=== PATIENT | female | born 1980 | race Caucasian/White ===

== ENCOUNTER 2018-09-18 09:41 | Outpatient (REF) | payer OTHER, SELFPAY ==
--- NOTE | 2018-09-18 09:10 | PAPFT_PTH ---
PATIENT: Savanna Hurd LOC: [facility] U#:[id number] AGE/SX: 38/F ROOM: RE09/18/[address]: BERNICE Alvarenga : 1980 BED: DIS: 09/18/2018 SPEC #: [id number] RECD: 09/18/18 12:50 STATUS: NII REQ #: [id number] EDGARDO: 09/18/18 09:[address]: Tonia Simon DEPT: [facility] Cytology RECD BY: Mary Nieves Tissues: 1 - CX/ENDOCX FOR PAP SMEARS Procedures: PAP THIN PREP/[facility] Screening HPV DNA PROBE Comments: [id number]
== END 2018-09-18 10:01 ==
LOC: LBN 09:41
PROVIDERS: Visit Provider Nurse Practitioner Family
DX: Z12.4 Encounter for screening for malignant neoplasm of cervix (principal); Z11.51 Encounter for screening for human papillomavirus (HPV)
CPT/HCPCS: 88142; 87624

== ENCOUNTER 2019-12-28 10:20 | Outpatient (REF) | payer BC, SELFPAY ==
[2019-12-28 13:15] LABS: Abs Immature Grans 0.02 10^3/uL (0.0-0.06); Absolute Basophil Count 0.03 10^3/uL (0.0-0.2); Absolute Eosinophil Count 0.01 10^3/uL (0.0-0.7); Absolute Lymphocyte Count 1.44 10^3/uL (1.2-3.4); Absolute Monocyte Count 0.35 10^3/uL (0.1-0.8); Absolute Neutrophil Count 3.43 10^3/uL (1.2-6.7); Basophils % 0.6; Eosinophils % 0.2; HCT 36.4 % (36.0-46.0); HGB 11.8 g/dL (11.2-15.7); Immature Grans % 0.4; Lymphocytes % 27.3; MCH 30.3 pg (27.0-33.0); MCHC 32.4 % (32.0-36.0); MCV 93.3 fL (80-95); MPV 10.6 fL (8.0-11.0); Monocytes % 6.6; Neutrophils % 64.9; Nucleated RBC 0 %; Platelet Count 227 10^3/uL (130-400); RDW 11.9 % (11.7-14.6); WBC 5.28 10^3/uL (4.4-10.8)
[2019-12-28 13:46] LABS: TSH 1.71 uIU/mL (0.36-3.74)
[2019-12-28 14:27] LABS: ESR 10 mm/hr (0-20)
== END 2019-12-28 10:40 ==
LOC: LBN 10:20
PROVIDERS: PCP Emergency Medicine; Visit Provider Emergency Medicine
DX: E03.9 Hypothyroidism, unspecified (principal); R19.7 Diarrhea, unspecified
CPT/HCPCS: 85652; 84443; 85025

== ENCOUNTER 2020-03-17 00:53 | Outpatient (CLI) | payer BC, SELFPAY ==
[2020-03-17 13:28] LABS: Potassium 3.8 mmol/L (3.5-5.1)
[2020-03-20 14:18] LABS: IgA 183 mg/dL (85-499); Interpretation (See Note); Tissue Transglutaminase IgA <1.2 U/mL (<4.0)
== END 2020-03-17 01:13 ==
PROVIDERS: PCP Emergency Medicine; Visit Provider Surgery
DX: R19.7 Diarrhea, unspecified (principal)
CPT/HCPCS: 36415; 82784; 83516; 83735; 84132

== ENCOUNTER 2020-03-18 09:49 | Outpatient (REF) | payer BC, SELFPAY ==
[2020-03-21 19:32] LABS: Calprotectin <15.6 mcg/g
== END 2020-03-18 10:09 ==
LOC: LBN 09:49
PROVIDERS: PCP Emergency Medicine; Visit Provider Surgery
DX: R19.7 Diarrhea, unspecified (principal)
CPT/HCPCS: 87329; 83993

== ENCOUNTER 2020-04-10 10:23 | Day surgery (SDC) | payer BC, SELFPAY ==
--- NOTE | 2020-04-10 06:56 | COLE_ITS ---
Date of service: 04/10/20 Time of Service: 12:09 Colonoscopy Report Date of procedure: 04/10/20 Pre-op diagnosis general: Diarrhea Post-op diagnosis procedure note: same Procedure: Colonoscopy with random biopsies Surgeon: Criss Kelly Anesthesia proc note operative: other (General/ASA 2/Jeffery Anderson, MAHSA) Estimated blood loss (mL): 3 Pathology: other (Random biopsies of colon) Complications: None Disposition: same day Indications: 40 year old female with chronic intermittent diarrhea for the last 12 years. More recently, in the last 2 years, the bouts of diarrhea have become more common. She usually has at least 2 days with diarrhea in the morning. She has noticed no blood. She has no family history of ulcerative colitis, Crohn's, IBS or colon cancer. We discussed differential for diarrhea. Differential includes functional diarrhea, infectious, malabsorptive as well as emotional. Labs have all been normal. She has eliminated lactose which had no effect. At this point I think a colonoscopy is reasonable. If negative then will try a FODMAP diet +/- medication for IBS-D Risks, benefits and complications have been reviewed. Complications include but are not limited to bleeding, pain, perforation, missed small lesion/polyp, sore throat, aspiration and adverse reaction to the medications. Questions were entertained and answered to their satisfaction and they wished to proceed. No guarantees were given or implied. COVID-19 testing explained to the patient. Reason for test reviewed. Quarantine per state requirements reviewed with patient. Patient understands and agrees to testing. Patient will be having a COVID test done at [facility] the friday before. As long as we can get a written copy of her results then she shouldn't need a COVID test on Friday. Proceed with Colonoscopy under sedation Prep: Miralax/Dulcolax Procedure Start Time: 12:09 Procedure End Time: 12:40 Retraction Time: 16 minutes Findings: Normal appearing large bowel Procedure Description: After informed consent was obtained the patient was taken to the procedure room and placed in a left decubitous position. Monitors were applied and a time out was done. The patients name, date of , procedure, allergies to medications and metal in their body was reviewed. The patient was then sedated. Once sedated and comfortable a rectal exam was done. External exam was normal. Internal exam revealed a normal sphincter tone and no palpable masses. The scope was then introduced and retro-flexed. No internal hemorrhoids, polyps or masses were identified on retro-flexion. The scope was then advanced to the cecum with some difficulty due to a tortuous colon. The ileocecal valve and appendiceal orifice were identified. The prep was good. The scope was then slowly retracted over 16 minutes back into the rectum. There were no polyps. There was no diverticulosis noted. Random biopsies were done to rule out collagenous colitis. The scope was removed and the patient was woken up and taken back to Same day surgery in stable condition. The patient tolerated the procedure well and there were no immediate complications. Follow up: The patient should follow up in 10 years unless they develop changes in bowel habits or other new gastrointestinal complaints.
--- NOTE | 2020-04-10 06:57 | W.PM.DSUDISC ---
Discharge Plan Disposition Patient Disposition: HOME Condition: Good Discharge Details Reason For Visit: Diarrhea Attending Provider: Criss Kelly Primary Care Provider: Alpesh Forde Home Meds and New Rx's Prescriptions: Continued ibuprofen 200 mg tablet 200 mg PO DAILY RF: 0 loperamide [Imodium A-D] 2 mg tablet 2 mg PO DAILY RF: 0 Discontinued bisacodyl [Dulcolax (bisacodyl)] 5 mg tablet,delayed release (DR/EC) 5 mg PO ONCE Qty: 4 RF: 0 polyethylene glycol 3350 17 gram powder in packet 255 g PO DAILY Qty: 15 RF: 0 Discharge Instructions Additional Instructions: Findings: Normal looking large intestine Follow up: I did random biopsies I will call you with results and figure out the next step. Please call if you develop: fevers >101.5 Nausea or Vomiting Abdominal pain that is not transient DAY SURGERY UNIT POST ENDOSCOPY INSTRUCTIONS 1. Because there will be medication in your system for the next 24 hours, you may feel a little sleepy. Your coordination will be affected. Therefore: a. Do not drive or operate dangerous equipment for 24 hours. b. Do not drink alcohol beverages for 24 hours (not even beer). c. Plan to go home and rest for the day. 2. Generally there are no restrictions on your activity after a day or so has gone by, but you may feel a bit fatigued for a few days. 3 After you arrive home you may have a light meal and return to a normal diet as you can tolerate it without feeling sick to your stomach. 4. After surgery, you may feel pain or discomfort. This should be only transient, but if it persists please contact your doctor. 5. If there are any questions regarding the findings of your procedure, please feel free to contact your doctor. 6. If you are unable to contact your doctor with a problem, contact the hospital at [phone]. 7. Continue all your regular medications unless directed otherwise. I understand the above instructions and have no questions. Signature of Patient or Responsible Adult Escort Date/Time Name of Responsible Adult Escort Signature of Nurse Date/Time Activity:: Activity as Tolerated Diet:: As Tolerated Discharge Orders Discharge Orders: Discharge Order (Routine); Ordered 04/10/20 Ordered By: Criss Kelly
[2020-04-10 10:55] VITALS: BP 112/75; PULSE 83; RESP 16; TEMP 36.4; O2SAT 96
[2020-04-10] MEDS: Lactated Ringers 1,000 ML 80 ML IV (11:05)
--- NOTE | 2020-04-10 12:28 | BOWEL_PTH ---
PATIENT: Savanna Hurd LOC: [facility] U#:[id number] AGE/SX: 40/F ROOM: RE04/10/[address]: Criss Kelly MD : 1980 BED: DIS: 04/10/2020 SPEC #: [id number] RECD: 04/10/20 16:04 STATUS: NII RE #: [id number] EDGARDO: 04/10/20 12:[address]: Criss Kelly DEPT: Surgical Specimen RECD BY: Mary Nieves ENTERED: 04/10/20 16:07 SP TYPE: Bowel OTHR DR: Alpesh Forde DO Tissues: 1 - BIOPSY BOWEL 2 - BIOPSY BOWEL 3 - BIOPSY BOWEL 4 - BIOPSY BOWEL Procedures: GROSS AND MICRO LEVEL 4 Comments: [id number]
[2020-04-10 13:05] VITALS: BP 112/71; PULSE 66; RESP 16; TEMP 36.3; O2SAT 100
== END 2020-04-10 13:28 | disposition home or self-care (01) ==
LOC: SUR 10:24
PROVIDERS: PCP Emergency Medicine; Visit Provider Surgery
PROC: 0DJD8ZZ Inspection of Lower Intestinal Tract, Via Natural or Artificial Opening Endoscopic (ICD-10-PCS; CPT 45378; principal; 2020-04-10 12:30)
DX: R19.7 Diarrhea, unspecified (principal); Q43.8 Other specified congenital malformations of intestine
CPT/HCPCS: 45380; 81025; 88305

== ENCOUNTER 2021-03-27 18:29 | Outpatient (REF) | payer BC, SELFPAY ==
[2021-03-28 16:37] LABS: COVID-19 RT-PCR UVMMC Result Positive (Negative)
== END 2021-03-27 18:30 | disposition home or self-care (01) ==
LOC: LBN 18:29
PROVIDERS: PCP Family Medicine; Visit Provider Nurse Practitioner
DX: Z20.822 Contact with and (suspected) exposure to COVID-19 (principal)
CPT/HCPCS: U0003

== ENCOUNTER 2021-05-23 10:23 | Outpatient (REF) | payer BC, SELFPAY ==
[2021-05-24 21:06] LABS: COVID-19 RT-PCR UVMMC Result Negative (Negative)
== END 2021-05-23 10:24 | disposition home or self-care (01) ==
LOC: LBN 10:23
PROVIDERS: PCP Family Medicine; Visit Provider Nurse Practitioner Family
DX: Z20.822 Contact with and (suspected) exposure to COVID-19 (principal)
CPT/HCPCS: U0003

== ENCOUNTER 2024-03-29 10:45 | Outpatient (REF) | payer BC, SELFPAY ==
--- NOTE | 2024-03-29 10:30 | PAPFT_PTH ---
PATIENT: Savanna Hurd LOC: [facility] U#:[id number] AGE/SX: 44/F ROOM: RE03/29/[address]: Christen Slaughter NP : 1980 BED: DIS: 03/29/2024 SPEC #: [id number] RECD: 03/29/24 12:39 STATUS: NII REQ #: [id number] EDGARDO: 03/29/24 10:[address]: Christen Slaughter NP DEPT: [facility] Cytology RECD BY: Mary Nieves ENTERED: 03/29/24 12:39 SP TYPE: PAPFT OT DR: Sonya Hale, NON PROFIT DIRECTOR Tissues: 1 - CX/ENDOCX FOR PAP SMEARS Procedures: PAP THIN PREP/UVM Screening HPV DNA PROBE Comments: [id number] (HPV 16 & 18/45)
== END 2024-03-29 10:46 | disposition home or self-care (01) ==
LOC: LBN 10:45
PROVIDERS: PCP Nurse Practitioner Family; Visit Provider Nurse Practitioner Women's Health
DX: Z11.51 Encounter for screening for human papillomavirus (HPV) (principal); Z01.419 Encounter for gynecological examination (general) (routine) without abnormal findings
CPT/HCPCS: 88142; 87624